=== PATIENT | male | born 1940 | race Caucasian/White ===

== ENCOUNTER 2017-06-26 16:35 | Emergency (ER) | payer OTHER, BC ==
[~2017-06-26] VITALS: Ht 177.8 cm; Wt 78.0 kg
[~2017-06-26 16:35] MED LIST: AMBIEN5 MG PO; AMLODIPINE BESYL5 M1 PO; CALCIUM1 TA1; FISH OIL1 CAP PO; FOSAMAX70 MG PO; GABAPENTIN600 M1 PO; LIPI20 PO; LISINOPRIL20 MG PO; MELOXICAM15 M1 PO; MULTIVITAMIN1 SGL; PRADAXA150 M1 PO; PROTONIX TR40 M1 PO
[2017-06-26 17:15] VITALS: Ht 177.8 cm; Wt 78.0 kg
[2017-06-26 19:22] VITALS: BP 137/87
== END 2017-06-26 19:22 | disposition home or self-care (01) ==
LOC: ED 16:35
DX: S01.81XA Laceration without foreign body of other part of head, initial encounter (principal); I10 Essential (primary) hypertension; Z88.0 Allergy status to penicillin; Z88.6 Allergy status to analgesic agent; Z86.73 Personal history of transient ischemic attack (TIA), and cerebral infarction without residual deficits; Z90.49 Acquired absence of other specified parts of digestive tract; W07.XXXA Fall from chair, initial encounter; Y93.89 Activity, other specified; Y92.89 Other specified places as the place of occurrence of the external cause; Y99.8 Other external cause status